=== PATIENT | female | born 1990 | race Two or more races ===

== ENCOUNTER 2024-03-24 16:34 | Emergency (ER) | payer OTHER ==
[~2024-03-24] VITALS: Ht 160 cm; Wt 81.0 kg
[2024-03-24] MEDS: ALPRAZolam 0.25 MG TAB PO ONE (17:37)
[2024-03-24 17:38] VITALS: RESP 18
[2024-03-24 18:55] VITALS: BP 128/81; PULSE 64; RESP 18; TEMP 97.8; O2SAT 97
== END 2024-03-24 18:55 | disposition home or self-care (01) ==
LOC: ER 16:34
DX: R07.89 Other chest pain (principal); F41.9 Anxiety disorder, unspecified; F32.A Depression, unspecified; F17.210 Nicotine dependence, cigarettes, uncomplicated
CPT/HCPCS: 36415; 71045; 84484; 93005